=== PATIENT | female | born 1940 | race Caucasian/White ===

== ENCOUNTER → 2020-02-03 | Outpatient (CLI) | payer OTHER, BC | LOC: SJCVC 13:40 | PROVIDERS: ATTEND Internal Medicine | DX: R94.31 Abnormal electrocardiogram [ECG] [EKG] (principal); I49.1 Atrial premature depolarization; I10 Essential (primary) hypertension; M31.6 Other giant cell arteritis; E78.5 Hyperlipidemia, unspecified; J43.9 Emphysema, unspecified; Z90.49 Acquired absence of other specified parts of digestive tract; Z90.710 Acquired absence of both cervix and uterus; Z79.899 Other long term (current) drug therapy; Z87.891 Personal history of nicotine dependence ==

== ENCOUNTER → 2020-02-10 | Outpatient (CLI) | payer OTHER, BC | LOC: SJCVCIMAG 10:57 | PROVIDERS: ATTEND Internal Medicine | DX: R00.0 Tachycardia, unspecified (principal) ==